=== PATIENT | female | born 2005 | race Caucasian/White ===

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

== ENCOUNTER 2024-03-09 14:38 | Outpatient (CLI) | payer MEDICAID | END 2024-03-09 14:39 | disposition critical access hospital (66) | LOC: EMS 14:38 | DX: R06.4 Hyperventilation (principal); R07.9 Chest pain, unspecified; R29.0 Tetany; I49.9 Cardiac arrhythmia, unspecified | CPT/HCPCS: A0425; A0429; A0999 ==

== ENCOUNTER 2024-03-09 14:57 | Emergency (ER) | payer MEDICAID ==
--- NOTE | 2024-03-09 15:13 | ED Physician Documentation ---
History of Present Illness - Stated complaint Stated Complaint: PANIC ATTACK - History obtained from History obtained from: Patient - Additonal information Additional information: This is a 19-year-old female who has a history of anxiety and depression and presents today via EMS after reporting a panic attack. The patient states that she was on the phone with her ex boss for a job that she quit yesterday. The bus was apparently berating her and telling her that she did not care that her father a couple of months ago And among other things That triggered the patient to have an anxiety attack. She states she started crying profusely and cannot stop and it felt like it was spiraling out of control, she had some chest tightness, and her arms were clenched up, she states she also soiled herself so she had no seizure activity. She was hyperventilating for period time. The patient states that she has had similar issues in the past, and is on venlafaxine as well as as needed hydroxyzine. She states she is feeling substantially better now and would not have come to the emergency department except that the chief librarian music department said that she had some "PVCs on the EKG." She is not having chest pain at this time, denies heart palpitations, and is feeling substantially better. She declines any anxiety medicine at this time. Review of Systems Constitutional: reports: Reviewed and negative Eyes: reports: Reviewed and negative Ears: reports: Reviewed and negative Nose: reports: Reviewed and negative Throat: reports: Reviewed and negative Cardiac: reports: Reviewed and negative Respiratory: reports: Reviewed and negative GI: reports: Reviewed and negative : reports: Reviewed and negative Skin: reports: Reviewed and negative Musculoskeletal: reports: Reviewed and negative Neurologic: reports: Reviewed and negative Psychiatric: reports: Anxiety PD PAST MEDICAL HISTORY - Past Medical History Past Medical History: Yes Cardiovascular: None Respiratory: None Neuro: None Endocrine/Autoimmune: None GI: None 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 : None HEENT: None Psych: Depression, Anxiety Musculoskeletal: None Derm: None - Past Surgical History Past Surgical History: No - Present Medications Home Medications: Ambulatory Orders Medication Instructions Recorded Confirmed Escitalopram [Lexapro] 20 mg PO DAILY 05/22/21 04/14/22 l-Norgest/E.estradiol-E.estrad 1 each PO DAILY 07/24/21 04/14/22 [Levonor-E Estrad 0.1-0.02-0.01] - Allergies Allergies/Adverse Reactions: Allergies Allergy/AdvReac Type Severity Reaction Status Date / Time No Known Drug Allergies Allergy Verified 04/14/22 12:35 - Social History Does the pt smoke?: No Smoking Status: Never smoker Does the pt drink ETOH?: No Does the pt have substance abuse?: No - Immunizations Immunizations are current?: Yes PD ED PE NORMAL - Vitals Vital signs reviewed: Yes - General General: Alert and oriented X 3, No acute distress, Well developed/nourished - HEENT HEENT: Atraumatic, PERRL, EOMI, Moist mucous membranes - Neck Neck: Supple, no meningeal sign, No JVD - Cardiac Cardiac: RRR, No murmur - Respiratory Respiratory: No respiratory distress, Clear bilaterally - Abdomen Abdomen: Normal bowel sounds, Soft, Non tender, Non distended - Derm Derm: Normal color, Warm and dry, No rash - Neuro Neuro: Alert and oriented X 3 Eye Opening: Spontaneous Motor: Obeys Commands Verbal: Oriented GCS Score: 15 - Psych Psych: Normal mood, Normal affect Results - Vitals Vitals: Oxygen O2 Source Room air PD Medical Decision Making - ED course Complexity details: reviewed results, d/w patient ED course: 19-year-old female presents with a panic attack. The patient has a history of underlying anxiety and states her symptoms were triggered today by an argument over the phone with her ex boss. The patient states that she still grieving the loss of her father in December and that her mom also in childhood and her boss brought up all these issues on the phone which caused her to feel a flood of emotion. She states she is feeling substantially better at this time, declines any anxiety medicine, and denies any current complaints. She did have a report of PVCs on EMS EKG no patient is not having a heart palpitations. I discussed with patient that this is a common finding, typically benign, and no additional workup is necessary for this. I did encourage her to consider magnesium supplementation for both anxiety and PVCs, and follow-up outpatient with PCP. Departure - Departure Clinical Impression: Panic attack due to exceptional stress Condition: Good Instructions: ED Stress React, ED Panic Attack Comments: I am sorry that this happened to you today. Your evaluation here was reassuring, and no additional workup is indicated. Please continue your venlafaxine and as needed hydroxyzine and follow-up outpatient with your primary doctor. I also recommend you consider taking nighttime magnesium which may help with both the underlying anxiety as well as PVCs. The PVCs are not typically concerning and sometimes due to low magnesium or potassium. They are quite common finding on EKGs.
[2024-03-09 15:33] VITALS: O2SAT 99
[2024-03-09 15:51] VITALS: BP 145/99
== END 2024-03-09 15:42 | disposition home or self-care (01) ==
LOC: EDUNIT# → ED 14:57
DX: F43.0 Acute stress reaction (principal); F32.A Depression, unspecified; I49.3 Ventricular premature depolarization
CPT/HCPCS: 93005; 99283